=== PATIENT | female | born 1980 | race Caucasian/White ===

== ENCOUNTER → 2018-08-19 | Outpatient (CLI) | payer OTHER ==
--- NOTE | 2018-08-19 11:03 | KCIC ---
Examination: MRI of the right elbow without contrast History right elbow pain, fall, pain posterior elbow COMPARISON: None available TECHNIQUE: Multiplanar, multisequence MR imaging of the right elbow was performed without contrast FINDINGS: The attachment of the triceps tendon to the olecranon process grossly appears intact. The attachment of the brachialis tendon, biceps tendon distally grossly appears intact. There is mild increased T2 signal identified at the attachment of the common flexor tendon to the medial epicondyle posteriorly. The ulnar collateral ligament appears intact. The common extensor tendon attachment grossly appears intact. The radial collateral ligament, lateral ulnar collateral ligament grossly appears intact. Small elbow joint effusion is identified. The ulnar nerve within the cubital tunnel grossly appears unremarkable. There is likely minimal displaced fracture of the coronoid process of the ulna, best visualized on series 10 image #14. No significant obvious edema identified about the fracture site probably old fracture. IMPRESSION: 1. Minimal displaced fracture of the coronoid process of the ulna without surrounding edema. 2. Minimal increased T2 signal identified in the posterior aspect of the common flexor tendon attachment to the medial epicondyle could be mild tendinosis or subtle tear. 3. Small elbow joint effusion. Electronically signed by: Kurt Guevara MD (08/19/2018 11:00 AM) [email or web address]
== END | disposition home or self-care (01) ==
LOC: KCIC MRI 08:42
PROVIDERS: ATTEND Orthopaedic Surgery
DX: S52.041A Displaced fracture of coronoid process of right ulna, initial encounter for closed fracture (principal); M25.421 Effusion, right elbow; W19.XXXA Unspecified fall, initial encounter; Y93.89 Activity, other specified; Y92.89 Other specified places as the place of occurrence of the external cause; Y99.8 Other external cause status
CPT/HCPCS: 73221